=== PATIENT | male | born 1935 | race Caucasian/White ===

== ENCOUNTER 2019-08-01 10:53 | Day surgery (SDC) | payer MEDICARE, BC ==
--- NOTE | 2019-07-26 12:33 | HP ---
AMENDED REPORT NOW INCLUDES DESIGNATED COSIGNER PREOPERATIVE HISTORY AND PHYSICAL: DATE OF SURGERY/ADMISSION: 08/01/19 DATE OF OFFICE VISIT/ENCOUNTER: 07/05/19 ATTENDING SURGEON: Mabel Smyth MD * (DICTATED BY JASIEL MCWILLIAMS) PROCEDURE: Excision mass, left long finger. HISTORY OF PRESENT ILLNESS: This is an 84-year-old male who complains of a lump on his left middle finger, it has been present for a couple of months. He does not recall any injury. He does have some other skin issues, so he thought that was part of the problem. He has seen Dr. Marte, certified hyperbaric technologist for his skin issues and she referred him to Dr. Smyth for evaluation of the lump. The patient reports that there has been some leakage of fluid at times from the lump, but it is not painful. 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 The lump on his finger has become bothersome enough that he would like to have it removed surgically. He is on Pradaxa and we will plan on him remaining on that perioperatively. We will get clearance from his primary care physician, Dr. Lan prior to proceeding with surgery. PAST MEDICAL HISTORY: 1. Diabetes. 2. Squamous and basal cell carcinoma. 3. History of prostate cancer. 4. History of heart disease. 5. Hypercholesterolemia. PAST SURGICAL HISTORY: 1. Coronary artery stent placement x3 in 2005. 2. Prostatectomy in 2011. 3. Squamous cell/basal cell carcinoma excision. CURRENT MEDICATIONS: 1. Aspirin low dose 81 mg daily. 2. Digoxin 125 mcg daily. 3. Docusate sodium 100 mg daily. 4. Losartan potassium 25 mg daily. 5. Metformin HCl 500 mg 2 tabs twice a day. 6. Metoprolol tartrate 50 mg 1-1/2 tabs twice a day. 7. Pradaxa 150 mg daily. 8. Simvastatin 10 mg daily. 9. Vitamin B12 1000 mcg daily. 10. Vitamin D3 1000 units daily. ALLERGIES: No known drug allergies. FAMILY MEDICAL HISTORY: Diabetes, hypertension. SOCIAL HISTORY: The patient is a retired field machinist. He is a former smoker. He quit approximately 40 years ago. Prior to that, he smoked half a pack per day for 10 years. He denies recreational drug use. He drinks alcohol on occasion. REVIEW OF SYSTEMS: Negative for general, cephalic, cardiovascular, respiratory , GI, , other musculoskeletal, integumentary, endocrine, neurologic, and hematologic symptoms. Infectious Disease: Negative for MRSA, hepatitis C, HIV. PHYSICAL EXAMINATION GENERAL: Well-developed, well-nourished 84-year-old male, in no acute distress. VITAL SIGNS: Height 5 feet 7 inches, weight 180 pounds. Blood pressure 180/88 , pulse rate 60. HEENT: Normocephalic and atraumatic. Pupils are equal, round, and reactive to light and accommodation. Extraocular movements are intact. Throat is clear. NECK: Supple. No palpable lymph nodes. PULMONARY: Lungs are clear to auscultation bilaterally. No wheezes, rales, or rhonchi. CARDIOVASCULAR: Regular rate and rhythm. S1 and S2. No murmurs, rubs, or gallops. No edema. ABDOMEN: Positive bowel sounds. Soft and nontender. NEUROLOGICAL: Alert and oriented x3. Cranial nerves II through XII are intact. Sensation is intact to light touch. MUSCULOSKELETAL: On exam of his left middle finger, he has a mucous cyst at the DIP joint. Fingernail is intact. He has fairly limited range of motion at the joint, but it is not painful. There is an obvious osteophyte there as well. He can make a rough fist, but has significant degenerative changes in both hands and cannot make a tight fist with either hand. He has good motion in his wrist. Skin is intact along the finger, but there are some skin lesions on his forearms. IMAGING STUDIES: X-rays AP, lateral, and oblique of the left middle finger shows significant osteoarthritis. IMPRESSION: Left middle finger mucous cyst. PLAN: The patient is scheduled to undergo an excision mass, left long finger with Dr. Smtyh on 08/01/19. He will return to the office 10 days postop for followup and suture removal. A prescription for tramadol was e-scribed to the patient's pharmacy for postoperative pain management. We will get clearance prior to proceeding with surgery from Dr. Lan and the patient will remain on his Pradaxa during the perioperative period. JASIEL MCWILLIAMS [id number]/[facility] #: [id number] MTDD
[~2019-08-01 10:53] MED LIST: Buffered Lidocaine 1% SYRIN* 1 ML/SYRINGE INTRADERM ONE; Dexamethasone TAB* 4 MG PO ONE; Famotidine IV* 10 MG/ML 2 ML (20 mg) IV ONE; Lactated Ringers 1000 ML Bag* 1,000 ML IV SCH; Naloxone* 0.4 MG/ML 1 ML VIAL IV PRN; Ondansetron ODT TAB* 4 MG PO ONE; PROCHLORPERAZINE INJ 5 MG/ML 2 ML VIAL IV PRN; oxyCODONE/Acetamin 5/325 MG* TAB PO PRN
[2019-08-01] MEDS ORDERED: Dexamethasone TAB* 4 MG ONE (11:17)
[2019-08-01] MEDS ORDERED: Ondansetron ODT TAB* 4 MG ONE (11:17)
[2019-08-01] MEDS ORDERED: Famotidine IV* 10 MG/ML 2 ML (20 mg) ONE (11:17)
[2019-08-01] MEDS ORDERED: fentaNYL* 50 MCG/ML 2 ML VIAL (100 MCG VIAL) ONE (12:10)
[2019-08-01] MEDS ORDERED: Midazolam* 1 MG/ML 2 ML VIAL (2 MG) ONE (12:11)
[2019-08-01] MEDS ORDERED: Lidocaine 1% INJ* 10 MG/ML 30 ML SDV ONE (12:35)
[2019-08-01 13:32] VITALS: BP 143/83
--- NOTE | 2019-08-01 22:34 | OP ---
DATE OF OPERATION: 08/01/2019 [facility] DATE OF : 37 SURGEON: Mabel Smyth MD DIRECTIONAL DRILL OPERATOR: JASIEL Trejo ANESTHESIA: Local MAC. PRE-OP DIAGNOSIS: Left long finger mass. POST-OP DIAGNOSIS: Left long finger mass. OPERATIVE PROCEDURE: Removal of left long finger mass. INDICATIONS FOR PROCEDURE: Mariluz is an 84-year-old man who has a painful mass on the dorsal aspect of his left middle finger DIP joint. He presents for removal. ESTIMATED BLOOD LOSS: Zero. TOURNIQUET TIME: Approximately 15 minutes. DESCRIPTION OF PROCEDURE: The patient was brought to the operating room, was given a sedation anesthetic and a digital block with 10 cc of 1% plain lidocaine. The skin of his left hand and forearm was prepped and draped in the usual sterile fashion. The finger was exsanguinated with a Tourni-Cot which was left in place for the duration of the procedure. An H-shaped incision was made on the dorsal aspect of the DIP joint. We dissected the skin flaps up over the mass, there was a ganglion cyst and 3 large osteophytes. The osteophytes were debrided with a rongeur and all of the removed tissue was sent for pathology. Portion of the osteophyte was left intact as this was where the insertion of the extensor tendon was. The wound was irrigated. There was a small portion of the extensor tendon that had been incised longitudinally to remove one of the osteophytes and this was repaired with a 4-0 Vicryl suture in interrupted fashion. The skin edges were reapproximated with 4-0 nylon suture. The wound was dressed with Xeroform, 4x4, Webril, and Coban. The patient tolerated the procedure well and was brought to the recovery room in good condition. [id number]/[facility] #: [id number] [facility]ENTERDarion
== END 2019-08-01 13:56 | disposition home or self-care (01) ==
LOC: OREAST 10:53
PROVIDERS: ATTEND Orthopaedic Surgery
DX: M67.442 Ganglion, left hand (principal); E11.9 Type 2 diabetes mellitus without complications; Z79.84 Long term (current) use of oral hypoglycemic drugs; Z85.828 Personal history of other malignant neoplasm of skin; Z85.46 Personal history of malignant neoplasm of prostate; I25.10 Atherosclerotic heart disease of native coronary artery without angina pectoris; E78.5 Hyperlipidemia, unspecified; Z95.5 Presence of coronary angioplasty implant and graft; Z79.82 Long term (current) use of aspirin
CPT/HCPCS: 88304; A9270-GY; J2250; J3010; J8540